=== PATIENT | male | born 1955 ===

== ENCOUNTER → 2022-04-08 12:00 | Outpatient (CLI) | payer OTHER, SELFPAY ==
--- NOTE | ~2022-04-08 | US_ITS ---
EXAMINATION: US aorta [facility] DATE: 04/08/2022 13:34 CDT INDICATION: Abdominal aortic aneurysm screening. History of smoking. High cholesterol. TECHNIQUE: Grayscale, color Doppler, and pulsed Doppler images of the aorta and common iliac arteries were obtained. COMPARISON: None. FINDINGS: The proximal aorta measures 2.6 cm greatest sagittal dimension. The mid aorta measures 2.4 cm greates t sagittal dimension. The distal aorta measures 2.2 cm greatest sagittal dimension. The right common internal iliac artery measures 1.1 cm. The left common iliac artery measures 1.2 cm. IMPRESSION: 1. Normal caliber aorta without evidence for aneurysm. Reviewed, dictated and finalized at location B.
== END ==
PROVIDERS: PCP Internal Medicine; Visit Provider Internal Medicine
DX: Z13.6 Encounter for screening for cardiovascular disorders (principal)
CPT/HCPCS: 76706